=== PATIENT | male | born 1985 | race Caucasian/White ===

== ENCOUNTER 2018-05-19 02:20 | Emergency (ER) | payer OTHER ==
[2018-05-19 02:26] VITALS: TEMP 97
[2018-05-19] MEDS ORDERED: NALOXONE 0.4 MG/ML 10 ML VIAL IVP STA (02:33)
[2018-05-19 03:14] LABS: Basophils % (A) 1 %; Eosinophils # (A) 0.2 k/uL (0-0.7); Eosinophils % (A) 3 %; HCT 42.2 % (39.0-53.0); HGB 14.8 gm/dL (13.0-17.5); Lymphocytes # (A) 2.4 k/uL (1.0-4.8); Lymphocytes % (A) 34 %; MCH 29.8 pg (25.0-35.0); MCV 85.2 fL (80.0-100.0); Mean Platelet Volume 5.8; Monocytes # (A) 0.4 k/uL (0-1.0); Monocytes % (A) 5 %; Neutrophils % (A) 55 %; Platelet Count 271 k/uL (150-450); RBC 4.95 m/uL (4.30-5.90); RDW 12.6 % (11.5-15.5); WBC 7.2 k/uL (3.8-10.6)
[2018-05-19 03:19] LABS: Albumin 4.8 g/dL (3.5-5.0); Calcium 10.3 mg/dL (8.4-10.2); Potassium 4.7 mmol/L (3.5-5.1); Total Bilirubin 0.5 mg/dL (0.2-1.3); Total Protein 8.3 g/dL (6.3-8.2)
[2018-05-19 03:20] LABS: Cocaine Screen,Urine Detected (NotDetected); Opiate Screen,Urine Not Detected (NotDetected); Phencyclidine Screen,Urine Not Detected (NotDetected); Urn Cannabinoid Scrn Not Detected (NotDetected)
[2018-05-19 03:21] LABS: Amphetamine Screen,Urine Detected (NotDetected); Barbiturate Screen,Urine Not Detected (NotDetected); Benzodiazepines Screen,Urine Not Detected (NotDetected); Methadone Screen, Urine Not Detected (NotDetected); Oxycodone Screen, Urine Not Detected (NotDetected); Tricyclic Antidepressant,Urine Not Detected (NotDetected)
[2018-05-19 03:22] VITALS: PULSE 92; RESP 16
--- NOTE | 2018-05-19 03:23 | CT ---
EXAM: CT Head Without Intravenous Contrast CLINICAL HISTORY: Drug overdose. Altered mental status TECHNIQUE: Axial computed tomography images of the head/brain without intravenous contrast. CTDI is 49.2 mGy and DLP is 1225 mGy-cm. This CT exam was performed using one or more of the following dose reduction techniques: automated exposure control, adjustment of the mA and/or kV according to patient size, and/or use of iterative reconstruction technique. COMPARISON: No relevant prior studies available. FINDINGS: Brain: Unremarkable. No hemorrhage. No significant white matter disease. No edema. Ventricles: Unremarkable. No ventriculomegaly. Bones/joints: Unremarkable. No acute fracture. Soft tissues: Unremarkable. Sinuses: Unremarkable as visualized. No acute sinusitis. Mastoid air cells: Unremarkable as visualized. No mastoid effusion. IMPRESSION: Normal head/brain CT.
[2018-05-19 03:33] VITALS: BP 169/99
--- NOTE | 2018-05-19 03:48 | ED ---
General Adult HPI - General Chief complaint: Overdose Stated complaint: Unresponsive Time Seen by Provider: 05/19/18 02:24 Source: patient, EMS Mode of arrival: EMS Limitations: altered mental status - History of Present Illness Initial comments: This patient is a 32-year-old man brought from a private residence by ambulance to be evaluated for altered mental status. The patient reportedly acutely became unresponsive. There was no history of trauma. No seizure-type activity described. EMS arrived and started an IV and then gave Narcan. They were able to notice the patient at times performing voluntary movement or being attentive. Arrival patient not giving any history however appears to be attentive to the environment. -: minutes(s) - Related Data Allergies Allergy/AdvReac Type Severity Reaction Status Date / Time Unable to Assess Allergy Verified 05/19/18 02:26 Review of Systems ROS Statement: Those systems with pertinent positive or pertinent negative responses have been documented in the HPI. ROS Other: All systems not noted in ROS Statement are negative. Limitations: ROS unobtainable due to patients medical condition Past Medical History Past Medical History: Unable to Obtain History of Any Multi-Drug Resistant Organisms: Unobtainable Past Surgical History: Unable to Obtain Past Psychological History: Unable to Obtain Smoking Status: Unknown if ever smoked Past Alcohol Use History: Unable to Obtain Past Drug Use History: Unable to Obtain General Exam Limitations: no limitations, altered mental status General appearance: in no apparent distress Head exam: Present: atraumatic, normocephalic Eye exam: Present: normal appearance, PERRL. Absent: scleral icterus, conjunctival injection Neck exam: Absent: tenderness, meningismus Respiratory exam: Present: normal lung sounds bilaterally. Absent: respiratory distress, wheezes, rales, rhonchi, stridor Cardiovascular Exam: Present: regular rate, normal rhythm, normal heart sounds. Absent: systolic murmur, diastolic murmur, rubs, gallop GI/Abdominal exam: Present: soft. Absent: distended, tenderness, guarding, rebound Extremities exam: Present: normal inspection, normal capillary refill. Absent: pedal edema Back exam: Present: normal inspection Neurological exam: Present: CN II-XII intact, reflexes normal, other (She appears to be not cooperating with history and physical. No focal neurologic findings on the exam.) Skin exam: Present: warm, dry, intact, normal color. Absent: rash Course Vital Signs 05/19/18 05/19/18 05/19/18 02:22 02:25 02:44 Temperature 97 F L Pulse Rate 82 82 Respiratory 20 16 20 Rate Blood Pressure 170/121 160/102 O2 Sat by Pulse 100 100 Oximetry 05/19/18 05/19/18 03:21 03:31 Temperature Pulse Rate 92 92 Respiratory 16 16 Rate Blood Pressure 152/90 169/99 O2 Sat by Pulse 97 100 Oximetry EKG Findings - EKG Results: EKG: interpreted by GOMEZ PALACIOS, sinus rhythm (With sinus arrhythmia, rate 94 bpm) , normal axis, normal QRS, normal ST/T, no acute changes - PA, Pacemaker, Normal: Normal tracing: normal tracing Medical Decision Making - Medical Decision Making After. Time in the emergency department, patient was able to discuss with nursing staff that she hadn't appeared to lose consciousness for what sounds like tertiary gain. He is not having any complaints and wanted to leave the emergency department. His workup is negative. - Lab Data Result diagrams: 05/19/18 02:35 05/19/18 02:35 Lab Results 05/19/18 05/19/18 05/19/18 Range/Units 02:35 02:35 02:35 WBC 7.2 (3.8-10.6) k/uL RBC 4.95 (4.30-5.90) m/uL Hgb 14.8 (13.0-17.5) gm/dL Hct 42.2 (39.0-53.0) % MCV 85.2 (80.0-100.0) fL MCH 29.8 (25.0-35.0) pg MCHC 35.0 (31.0-37.0) g/dL RDW 12.6 (11.5-15.5) % Plt Count 271 (150-450) k/uL Neutrophils % 55 % Lymphocytes % 34 % Monocytes % 5 % Eosinophils % 3 % Basophils % 1 % Neutrophils # 4.0 (1.3-7.7) k/uL Lymphocytes # 2.4 (1.0-4.8) k/uL Monocytes # 0.4 (0-1.0) k/uL Eosinophils # 0.2 (0-0.7) k/uL Basophils # 0.0 (0-0.2) k/uL Sodium 142 (137-145) mmol/L Potassium 4.7 (3.5-5.1) mmol/L Chloride 108 H (98-107) mmol/L Carbon Dioxide 25 (22-30) mmol/L Anion Gap 9 mmol/L BUN 19 (9-20) mg/dL Creatinine 0.83 (0.66-1.25) mg/dL Est GFR (CKD-EPI)AfAm 74 (>60 ml/min/1.73 sqM) Est GFR (CKD-EPI)NonAf 64 (>60 ml/min/1.73 sqM) Glucose 118 H (74-99) mg/dL Calcium 10.3 H (8.4-10.2) mg/dL Total Bilirubin 0.5 (0.2-1.3) mg/dL AST 58 (17-59) U/L ALT 92 H (21-72) U/L Alkaline Phosphatase 81 (38-126) U/L Total Protein 8.3 H (6.3-8.2) g/dL Albumin 4.8 (3.5-5.0) g/dL Urine Opiates Screen Not Detected (NotDetected) Ur Oxycodone Screen Not Detected (NotDetected) Urine Methadone Screen Not Detected (NotDetected) Ur Propoxyphene Screen Not Detected (NotDetected) Ur Barbiturates Screen Not Detected (NotDetected) U Tricyclic Antidepress Not Detected (NotDetected) Ur Phencyclidine Scrn Not Detected (NotDetected) Ur Amphetamines Screen Detected H (NotDetected) U Methamphetamines Scrn Not Detected (NotDetected) U Benzodiazepines Scrn Not Detected (NotDetected) Urine Cocaine Screen Detected H (NotDetected) U Marijuana (THC) Screen Not Detected (NotDetected) Disposition Clinical Impression: Adjustment reaction Disposition: HOME SELF-CARE Condition: Good Instructions (If sedation given, give patient instructions): Stress (ED) Is patient prescribed a controlled substance at d/c from ED?: No Referrals: None,Stated [Primary Care Provider] - 1-2 days
== END 2018-05-19 04:05 | disposition home or self-care (01) ==
LOC: EDBD → MERGE 02:20 → EC 02:20
DX: F43.20 Adjustment disorder, unspecified (principal)
CPT/HCPCS: 36415; 93005; 80053; 85025; 80306; 70450; 99285; 96374; J2310